=== PATIENT | male | born 1985 | race Caucasian/White ===

== ENCOUNTER 2016-12-26 10:35 | Emergency (ER) | payer OTHER ==
[2016-12-26] MEDS ORDERED: RX INFO: IV CONTRAST WAS GIVEN 1 EACH MISC MISCELLANE PRN (10:52)
[2016-12-26 11:04] VITALS: RESP 16
[2016-12-26] MEDS ORDERED: DEXAMETHASONE SOD PHOSPHATE 10 MG/ML 1 ML VIAL IV STA (11:23)
--- NOTE | 2016-12-26 11:24 | ED ---
ENT HPI - General Chief complaint: ENT Stated complaint: abcess Time Seen by Provider: 12/26/16 10:51 Source: patient, RN notes reviewed Mode of arrival: ambulatory Limitations: no limitations - History of Present Illness Initial comments: 31-year-old male presents emergency Department chief complaint sore throat. Patient states that every time he gets sick he ends up with tonsillitis. Patient states this may be the worse he's ever had. Patient was female patient clinic given Rocephin and sent emergency Department to rule out abscess. Patient states that he may have had a fever no recorded temperature. Patient had chills. Patient has a history of mono. Patient has seen an ear nose and throat physician in the past though his insurance denied tonsillectomy when he was younger. Patient denies any chest pain or shortness breath. Patient has had congestion, cough and sore throat. - Related Data Previous Rx's Medication Instructions Recorded Amoxicillin/Potassium Clav 1 tab PO Q12HR #20 tab 12/26/16 [Augmentin 875-125 Tablet] Allergies Allergy/AdvReac Type Severity Reaction Status Date / Time No Known Allergies Allergy Verified 12/26/16 10:53 Review of Systems ROS Statement: Those systems with pertinent positive or pertinent negative responses have been documented in the HPI. ROS Other: All systems not noted in ROS Statement are negative. Past Medical History Past Medical History: No Reported History History of Any Multi-Drug Resistant Organisms: None Reported Past Surgical History: No Surgical Hx Reported Past Psychological History: No Psychological Hx Reported Smoking Status: Current every day smoker Past Alcohol Use History: Daily, Heavy Past Drug Use History: None Reported General Exam Limitations: no limitations General appearance: alert, in no apparent distress Head exam: Present: atraumatic, normocephalic, normal inspection Eye exam: Present: normal appearance, PERRL, EOMI. Absent: scleral icterus, conjunctival injection, periorbital swelling ENT exam: Present: mucous membranes moist. Absent: normal oropharynx ( Erythematous posterior pharynx, edematous tonsils patient is swallowing secretions without difficulty though tonsils are essentially touching) Neck exam: Present: normal inspection, full ROM. Absent: tenderness, meningismus, lymphadenopathy Respiratory exam: Present: normal lung sounds bilaterally. Absent: respiratory distress, wheezes, rales, rhonchi, stridor Cardiovascular Exam: Present: regular rate, normal rhythm, normal heart sounds. Absent: systolic murmur, diastolic murmur, rubs, gallop, clicks GI/Abdominal exam: Present: soft, normal bowel sounds. Absent: distended, tenderness, guarding, rebound, rigid Neurological exam: Present: alert Skin exam: Present: warm, dry, intact, normal color. Absent: rash Course Vital Signs 12/26/16 12/26/16 10:40 10:58 Temperature 99.2 F 99.8 F H Pulse Rate 104 H 109 H Respiratory 20 16 Rate Blood Pressure 151/79 150/88 O2 Sat by Pulse 99 96 Oximetry Medical Decision Making - Medical Decision Making 31-year-old male present emergency department with chief complaint of sore throat. Patient does not have drainable abscess. Patient has tonsillitis in which he has had in the past. Patient was given Decadron emergency department and Rocephin prior arrival. Patient was placed on Augmentin. Patient is swallowing secretions well and is able to drink water in the room. We did discuss close follow-up with ENT and return parameters. Patient agrees to plan. Patient was questioned work note at this time. - Lab Data Result diagrams: 12/26/16 11:29 12/26/16 11:29 Lab Results 12/26/16 12/26/16 12/26/16 Range/Units 11:29 11:29 11:29 WBC 13.8 H (3.8-10.6) k/uL RBC 6.02 H (4.30-5.90) m/uL Hgb 18.9 H (13.0-17.5) gm/dL Hct 56.6 H (39.0-53.0) % MCV 94.0 (80.0-100.0) fL MCH 31.4 (25.0-35.0) pg MCHC 33.3 (31.0-37.0) g/dL RDW 13.2 (11.5-15.5) % Plt Count 238 (150-450) k/uL Neutrophils % 81 % Lymphocytes % 10 % Monocytes % 5 % Eosinophils % 3 % Basophils % 1 % Neutrophils # 11.1 H (1.3-7.7) k/uL Lymphocytes # 1.4 (1.0-4.8) k/uL Monocytes # 0.6 (0-1.0) k/uL Eosinophils # 0.4 (0-0.7) k/uL Basophils # 0.1 (0-0.2) k/uL Sodium 142 (137-145) mmol/L Potassium 4.9 (3.5-5.1) mmol/L Chloride 106 (98-107) mmol/L Carbon Dioxide 24 (22-30) mmol/L Anion Gap 12 mmol/L BUN 8 L (9-20) mg/dL Creatinine 0.90 (0.66-1.25) mg/dL Est GFR (MDRD) Af Amer >60 (>60 ml/min/1.73 sqM) Est GFR (MDRD) Non-Af >60 (>60 ml/min/1.73 sqM) Glucose 99 (74-99) mg/dL Calcium 10.2 (8.4-10.2) mg/dL Heterophile Antibody Negative (Negative) Group A Strep Rapid (Negative) 12/26/16 Range/Units 11:29 WBC (3.8-10.6) k/uL RBC (4.30-5.90) m/uL Hgb (13.0-17.5) gm/dL Hct (39.0-53.0) % MCV (80.0-100.0) fL MCH (25.0-35.0) pg MCHC (31.0-37.0) g/dL RDW (11.5-15.5) % Plt Count (150-450) k/uL Neutrophils % % Lymphocytes % % Monocytes % % Eosinophils % % Basophils % % Neutrophils # (1.3-7.7) k/uL Lymphocytes # (1.0-4.8) k/uL Monocytes # (0-1.0) k/uL Eosinophils # (0-0.7) k/uL Basophils # (0-0.2) k/uL Sodium (137-145) mmol/L Potassium (3.5-5.1) mmol/L Chloride (98-107) mmol/L Carbon Dioxide (22-30) mmol/L Anion Gap mmol/L BUN (9-20) mg/dL Creatinine (0.66-1.25) mg/dL Est GFR (MDRD) Af Amer (>60 ml/min/1.73 sqM) Est GFR (MDRD) Non-Af (>60 ml/min/1.73 sqM) Glucose (74-99) mg/dL Calcium (8.4-10.2) mg/dL Heterophile Antibody (Negative) Group A Strep Rapid Negative (Negative) Disposition Clinical Impression: Tonsillitis Disposition: HOME SELF-CARE Condition: Stable Instructions: Tonsillitis (ED) Additional Instructions: Please return to the Emergency Department if symptoms worsen or any other concerns. Prescriptions: Amoxicillin/Potassium Clav [Augmentin 875-125 Tablet] 1 tab PO Q12HR #20 tab Referrals: None,Stated [Primary Care Provider] - 1-2 days Chriss Abdalla MD [STAFF PHYSICIAN] - 1-2 days Mark Terrell DO [Doctor of Osteopathic Medicine] - 1-2 days Time of Disposition: 12:51
[2016-12-26 11:41] LABS: Basophils # (A) 0.1 k/uL (0-0.2); Basophils % (A) 1 %; CH 32.1; CHCM 34.2; Eosinophils # (A) 0.4 k/uL (0-0.7); Eosinophils % (A) 3 %; HCT 56.6 % (39.0-53.0); HDW 2.56; HGB 18.9 gm/dL (13.0-17.5); Luc # (Auto) 0.23; Luc % (Auto) 2; Lymphocytes # (A) 1.4 k/uL (1.0-4.8); Lymphocytes % (A) 10 %; MCH 31.4 pg (25.0-35.0); MCHC 33.3 g/dL (31.0-37.0); Mean Platelet Volume 6.9; Monocytes # (A) 0.6 k/uL (0-1.0); Monocytes % (A) 5 %; Neutrophils # (A) 11.1 k/uL (1.3-7.7); Neutrophils % (A) 81 %; RBC 6.02 m/uL (4.30-5.90); RDW 13.2 % (11.5-15.5); WBC 13.8 k/uL (3.8-10.6); WBC (Perox) 14.35
[2016-12-26 12:01] LABS: Anion Gap 12 mmol/L; Blood Urea Nitrogen 8 mg/dL (9-20); Calcium 10.2 mg/dL (8.4-10.2); Carbon Dioxide 24 mmol/L (22-30); Chloride 106 mmol/L (98-107); Glucose 99 mg/dL (74-99); Non-African American GFR(MDRD) >60 (>60 ml/min/1.73 sqM); Potassium 4.9 mmol/L (3.5-5.1); Sodium 142 mmol/L (137-145)
--- NOTE | 2016-12-26 12:28 | CT ---
EXAMINATION TYPE: CT soft tissue neck w con DATE OF EXAM: 12/26/2016 12:11 PM COMPARISON: NONE HISTORY: Patient complains of swollen tonsils. CONTRAST: Contrast enhanced CT of the neck was performed following the injection of 100 cc Omnipaque 300. Contrast enhanced CT of the neck was performed from the skull base through the lung apices. There is moderate edema of the tonsillar pillars resulting in luminal airway narrowing. Patent airway lumen measures 2 mm at the level of the base of the tongue. Small areas of decreased attenuation wit hin inflamed tonsillar pillars may reflect small early abscess formation. Adenoids are prominent at 1 .7 cm AP dimension. Mild prominence of the sublingual tonsils as well. Epiglottis has a normal appear ance. AIRWAY: The supraglottic, glottic, and subglottic portions of the airway appear free of mass. SALIVARY GLANDS: The submandibular and parotid glands are free of mass or inflammatory process. THYROID GLAND: 4 mm left thyroid nodule. LYMPH NODES: There is bilateral internal jugular chain adenopathy with multiple enlarged lymph nodes identified measuring up to 1.8 cm on the left and up to 1.7 cm on the right. There are also enlarged lymph nodes within the posterior triangles bilaterally with the largest lymph node on the left measur ing 1.6 cm and the largest on the right measuring 1.3 cm in short axis. LUNG APICES: No nodule or mass is seen. OTHER: Vascular structures are patent. No significant degenerative change of the cervical spine. N o abscess seen. IMPRESSION: 1. Moderate tonsillitis with narrowing of the airway lumen. Small early abscess formation nondrainabl e is difficult to exclude at this time. There is also reactive adenopathy.
[2016-12-26 13:17] VITALS: BP 138/70; PULSE 70; TEMP 99.2
== END 2016-12-26 13:17 | disposition home or self-care (01) ==
LOC: EC 10:35
DX: J03.90 Acute tonsillitis, unspecified (principal); F17.200 Nicotine dependence, unspecified, uncomplicated
CPT/HCPCS: 36415; 80048; 85025; 86308; 87081; 87430; 70491; 99283; 96374; J1100; Q9967